=== PATIENT | female | born 1965 | race Caucasian/White ===

== ENCOUNTER 2017-12-08 11:31 | Emergency (ER) | payer SELFPAY ==
[2017-12-08 11:32] VITALS: BP 160/60; PULSE 75; RESP 16; TEMP 36.4; O2SAT 97; BMI 27.8
--- NOTE | 2017-12-08 11:51 | ED.DCSUM_ITS ---
- ER Visit Summary Date of Service: 12/08/17 Chief Complaint: Cough History of Present Illness: The patient is a 52 F who presents with 2-1/2 weeks of cough and nasal congestion. Patient is from [place]. She is taking care of her family who is on hospice care. She states that the symptoms began 2-1/2 weeks ago with a 2-day diarrheal episode followed by the development of cough mucus And congestion and now occasional phlegm production. States that she feels like she has fluid in her ears. She has felt slightly wheezy and notes her symptoms are worse at night. She also notes a pain in the right flank is worse with movement and with touch. Is also made worse with the cough. Physical Examination: Afebrile vital signs are stable Gen: Well-nourished well-developed Head: Normocephalic atraumatic Eyes: Perrl EOMI ENT: Bilateral tympanic membrane demonstrate fluid. Right shows some bulging. Nasal examination shows bilateral turbinate edema and purulent nasal drainage moist mucous membranes Neck: Supple anterior lymphadenopathy no JVD nontender CVS: Regular rate rhythm no murmurs normal S1-S2 Respiratory: No distress clear to auscultation bilaterally chest nontender persistent cough Abdomen: Soft nontender nondistended normal bowel sounds no masses Back: Tender to palpation over the lower right posterior ribs Extremity: Nontender no edema Skin: Normal color no rash Neuro: alert orientated ?3 CN II-XII intact normal strength sensation reflexes gait cerebellar Psych: Normal affect normal mood Test Results: Chest x-ray was obtained. Negative for fracture infiltrate or mass Emergency Department Course and Treatment: Patient was treated with albuterol MDI here. She will continue this at home. I also write for Augmentin. Patient is to refrain from smoking follow-up when she returns home are return if worsening. Impression: 1. Sinusitis 2. Serous otitis media 3. Acute bronchitis This note was generated with [employer] dictation software. It may contain incorrect words, spelling, and punctuation that were not noted in review of the chart prior to signing ED Disposition - Plan for ED Patient: Disposition: Home or Assisted Living Chief Complaint: Cold Sx Instructions: ED Sinusitis Abx Tx, ED Otitis Media Serous Adult Prescriptions: Amox/Clavulanate Tablet [Augmentin Tablet] 875 mg PO Q12H #20 tab Referrals: NOT,DEFINED [NON-STAFF] - Additional Instructions: Use albuterol MDI 2 puffs every 4 hours
--- NOTE | 2017-12-08 11:52 | RAD_ITS ---
STUDY: X-RAY CHEST REASON FOR EXAM: Female, 52 years old. Cough, right-sided rib pain TECHNIQUE: PA and lateral views of the chest. COMPARISON: None. FINDINGS: The lungs are clear and expanded. There is no demonstrated pleural abnormality. Normal size heart. Normal mediastinum and farshad. Normal visualized pulmonary arteries. Normal visualized aortic arch and descending thoracic aorta. Normal visualized thoracic spine. Normal visualized ribs, clavicles, and shoulders. There is no demonstrated abnormality of the visualized soft tissue structures of the upper abdomen. RAD/Chest PA and Lateral IMPRESSION: Normal x-ray examination of the chest. Electronically Signed: Robbie Venegas MD at 12:13 EDT , Service support ,
[2017-12-08 12:01] VITALS: O2SAT 99
[2017-12-08 12:43] VITALS: BP 135/80; PULSE 75; RESP 18; O2SAT 99
== END 2017-12-08 12:59 | disposition home or self-care (01) ==
PROVIDERS: Emergency Provider Emergency Medicine
DX: J32.9 Chronic sinusitis, unspecified (principal); H65.90 Unspecified nonsuppurative otitis media, unspecified ear; J20.9 Acute bronchitis, unspecified; Z72.0 Tobacco use; R19.7 Diarrhea, unspecified
CPT/HCPCS: 71046; 99283